=== PATIENT | female | born 1990 | race Caucasian/White ===

== ENCOUNTER 2023-07-15 07:15 | Emergency (ER) | payer BC ==
[2023-07-15 07:34] VITALS: BP 130/81; PULSE 97
== END 2023-07-15 10:00 | disposition home or self-care (01) ==
LOC: JD.OBCHECK 07:15 → JD.ED 07:15 → EDSTATUS 07:18 → JD.ED 10:00
DX: Z53.21 Procedure and treatment not carried out due to patient leaving prior to being seen by health care provider (principal)
CPT/HCPCS: 99284

== ENCOUNTER 2023-10-08 06:52 | Inpatient (IN) | payer BC ==
[~2023-10-08 06:52] MED LIST: Bupivacaine 0.25% 10 ML SDV ONE; Lidocaine 1% 10 ML MDV ONE
[2023-10-08] MEDS ORDERED: Sodium Chloride 0.9% 10 ML Syringe FLUSH PRN (06:56)
[2023-10-08] MEDS ORDERED: Acetaminophen 325 MG Tab PO PRN (06:56)
[2023-10-08] MEDS ORDERED: Nalbuphine HCl 10 MG/ 1ML Amp IVPUSH PRN (06:56)
[2023-10-08] MEDS ORDERED: Ondansetron 4 MG/2 ML SDV IVPUSH PRN (06:56)
[2023-10-08] MEDS ORDERED: Lidocaine 1% 50 ML MDV INJECT PRN (06:56)
[2023-10-08] MEDS ORDERED: Oxytocin/Lactated Ringers 30 UNIT/500 ML BAG IV SCH ×2 (07:00)
[2023-10-08 07:44] LABS: BASOPHILS PERCENT AUTO 0.3 % (0.0-1.0); EOSINOPHILS ABSOLUTE AUTO 0.1 K/mm3 (0.0-0.4); EOSINOPHILS PERCENT AUTO 1.8 % (0.0-6.0); HEMATOCRIT 29.4 % (37.0-47.0); HEMOGLOBIN 9.6 gm/dl (12.0-16.0); IMMATURE GRAN ABSOLUTE AUTO 0.04 K/mm3 (0.00-0.05); IMMATURE GRAN PERCENT AUTO 0.5 % (0.0-0.4); LYMPHOCYTES ABSOLUTE AUTO 1.5 K/mm3 (1.0-4.8); LYMPHOCYTES PERCENT AUTO 20.4 % (24.0-44.0); MEAN CORPUSCULAR HEMOGLOBIN 27.3 pg (28.0-32.0); MEAN CORPUSCULAR HGB CONC 32.7 g/dl (32.0-36.0); MEAN CORPUSCULAR VOLUME 83.5 fl (83.0-99.0); MEAN PLATELET VOLUME 11.7 fl (9.4-12.3); MONOCYTES ABSOLUTE AUTO 0.6 K/mm3 (0.0-0.8); MONOCYTES PERCENT AUTO 7.9 % (0.0-8.0); NEUTROPHILS ABSOLUTE AUTO 5.1 K/mm3 (1.8-7.7); NEUTROPHILS PERCENT AUTO 69.1 % (41.0-71.0); PLATELET COUNT,PLT 121 K/mm3 (150-400); RED BLOOD CELL COUNT 3.52 M/mm3 (4.10-5.30); WHITE BLOOD CELL COUNT,WBC 7.32 K/mm3 (3.9-11.3)
[2023-10-08] MEDS ORDERED: Sodium Chloride 0.9% 10 ML Syringe FLUSH SCH (09:00)
[2023-10-08] MEDS ORDERED: fentaNYL 100 MCG/2 ML SDV EPIDUR PRN (09:07)
[2023-10-08] MEDS ORDERED: diphenhydrAMINE 50 MG/ML SDV IVPUSH PRN (09:07)
[2023-10-08] MEDS ORDERED: Bupivacaine/fentaNYL/NS 100 ML Bag EPIDUR PRN (09:07)
[2023-10-08] MEDS ORDERED: ePHEDrine 50 MG/ML SDV IVPUSH PRN (09:07)
[2023-10-08] MEDS: Lactated Ringers 1,000 ML IV SCH ×2 (10:19→14:26)
[2023-10-08] MEDS ORDERED: Benzocaine/Menthol 20%-0.5% Spray 78 GM Cannister TOP PRN (15:42)
[2023-10-08] MEDS ORDERED: Witch Hazel Medicated Pads 40/Jar TOP PRN (15:42)
[2023-10-08] MEDS: Ibuprofen 600 MG Tab PO PRN (17:24)
[2023-10-08] MEDS ORDERED: Docusate Sodium 100 MG Cap PO PRN (20:41)
[2023-10-08] MEDS: Acetaminophen 325 MG Tab PO PRN (20:55)
[2023-10-08] MEDS: Docusate Sodium 100 MG Cap PO PRN (20:59)
[2023-10-09] MEDS: Ibuprofen 600 MG Tab PO PRN ×2 (02:28→13:36)
[2023-10-09] MEDS: Docusate Sodium 100 MG Cap PO PRN ×2 (09:16→21:52)
[2023-10-09] MEDS: Acetaminophen 325 MG Tab PO PRN (09:17)
[2023-10-10] MEDS: Ibuprofen 600 MG Tab PO PRN (01:35)
[2023-10-10] MEDS: Docusate Sodium 100 MG Cap PO PRN (08:53)
[2023-10-10 09:09] VITALS: BP 111/87; PULSE 68
== END 2023-10-10 09:33 | disposition home or self-care (01) | DRG 560 ==
LOC: JD.OB 06:52 → OBSVTOIN 14:14 → JD.OB 14:14
PROVIDERS: ADMIT Obstetrics & Gynecology; ATTEND Obstetrics & Gynecology
PROC: 10E0XZZ Delivery of Products of Conception, External Approach (ICD-10-PCS; principal; 2023-10-08)
PROC: 10907ZC Drainage of Amniotic Fluid, Therapeutic from Products of Conception, Via Natural or Artificial Opening (ICD-10-PCS; 2023-10-08)
PROC: 3E033VJ Introduction of Other Hormone into Peripheral Vein, Percutaneous Approach (ICD-10-PCS; 2023-10-08)
PROC: 0KQM0ZZ Repair Perineum Muscle, Open Approach (ICD-10-PCS; 2023-10-08)
PROC: 3E0R3BZ Introduction of Anesthetic Agent into Spinal Canal, Percutaneous Approach (ICD-10-PCS; 2023-10-08)
PROC: 00HU33Z Insertion of Infusion Device into Spinal Canal, Percutaneous Approach (ICD-10-PCS; 2023-10-08)
DX: O99.52 Diseases of the respiratory system complicating childbirth (principal); J45.990 Exercise induced bronchospasm; Z3A.39 39 weeks gestation of pregnancy; Z37.0 Single live birth; O69.81X0 Labor and delivery complicated by cord around neck, without compression, not applicable or unspecified; O70.1 Second degree perineal laceration during delivery
CPT/HCPCS: 36415; 51701; 59025; 59409; 85025; 86592; 86850; 86900; 86901; A9270-GY; J3010; J3490; J7120; J7999